=== PATIENT | male | born 1995 | race Caucasian/White ===

== ENCOUNTER → 2020-01-16 07:23 | Outpatient (BNVA) | payer OTHER, SELFPAY | PROVIDERS: Family Provider Nurse Practitioner Family; PCP Nurse Practitioner Family; Visit Provider Nurse Practitioner Family | DX: Z20.828 Contact with and (suspected) exposure to other viral communicable diseases (principal); J06.9 Acute upper respiratory infection, unspecified | CPT/HCPCS: 87635 ==

== ENCOUNTER → 2021-05-14 11:04 | Outpatient (BNVA) | payer OTHER, SELFPAY | PROVIDERS: Family Provider Nurse Practitioner Family; PCP Nurse Practitioner Family; Visit Provider Nurse Practitioner Family | DX: J02.9 Acute pharyngitis, unspecified (principal); Z20.828 Contact with and (suspected) exposure to other viral communicable diseases | CPT/HCPCS: 87635 ==

== ENCOUNTER → 2021-05-14 11:04 | Outpatient (BNVA) | payer OTHER, SELFPAY | PROVIDERS: Family Provider Nurse Practitioner Family; PCP Nurse Practitioner Family; Visit Provider Nurse Practitioner Family | DX: J02.9 Acute pharyngitis, unspecified (principal) | CPT/HCPCS: 87880 ==

== ENCOUNTER 2024-02-28 21:11 | Emergency (ER) | payer OTHER, SELFPAY ==
[2024-02-28 21:18] VITALS: BP 152/96; PULSE 81; RESP 16; TEMP 36.7; O2SAT 97; BMI 27.9
[2024-02-28 21:44] VITALS: BP 141/92; PULSE 87; RESP 18; O2SAT 97
--- NOTE | 2024-02-28 21:48 | CTR_ITS ---
PROCEDURE INFORMATION: Exam: CT Lumbar Spine Without Contrast Exam date and time: 02/28/2024 10:00 PM Age: 28 years old Clinical indication: Low back pain TECHNIQUE: Imaging protocol: Computed tomography of the lumbar spine without contrast. Radiation optimization: All CT scans at this facility use at least one of these dose optimization techniques: automated exposure control; mA and/or kV adjustment per patient size (includes targeted exams where dose is matched to clinical indication); or iterative reconstruction. COMPARISON: No relevant prior studies available. RADIATION DOSE METRICS: Total DLP (mGy-cm): 550.5 FINDINGS: Bones/joints: Bone island in the left iliac wing. No acute fracture. No compression deformity. No spondylolisthesis. Mild posterior disc bulges L2-L3, L3-L4, L4-L5 and L5-S1 but no significant thecal sac compression or neural narrowing . Soft tissues: Unremarkable. CT/CT lumbar spine wo con* [id number] IMPRESSION: Mild degenerative disease of the lower lumbar spine.
--- NOTE | 2024-02-28 21:50 | W.ED.BACK ---
HPI - Back Pain/Injury General: Chief Complaint: Back Pain/Injury Stated Complaint: back pain Time Seen by Provider: 02/28/24 21:32 History of Present Illness: 28-year-old male patient comes in today for complaints of low back pain. 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 Patient reports that night he started having significant pain and over the last 48 hours his pain is exacerbated. Patient had gone to emergency department at [facility] and was evaluated there and given Flexeril. Patient reported no relief of his pain and discomfort and came to this emergency department. Patient reported that they did no imaging or further evaluation. Related Data Previous Rx's Medication Instructions Recorded diclofenac sodium 75 mg 75 mg PO BID PRN pain #20 tabs 02/28/24 tablet,delayed release hydrocodone 5 mg-acetaminophen 325 1 tab PO Q8H PRN pain #9 tabs 02/28/24 mg tablet Allergies Allergy/AdvReac Type Severity Reaction Status Date / Time No Known Allergies Allergy Verified 02/28/24 21:26 Review of Systems General: Reports: 10 or more systems reviewed and unremarkable except in HPI and below Musc: Reports: back pain [facility] ED PFSH: Social History (Updated 05/14/21 @ 11:01 by Jimena Shepard NP) Smoking and tobacco/nicotine status: current every day tobacco/nicotine user smokeless tobacco Smokeless tobacco user: chewing tobacco Physical Exam Const: COMMON NORMALS: alert HENMT: COMMON NORMALS: normocephalic HEAD & SCALP: normocephalic Neck/C-Spine: COMMON NORMALS: full ROM Resp: COMMON NORMALS: normal respiratory effort and clear to auscultation bilaterally AUSCULTATION: clear to auscultation bilaterally Cardio: COMMON NORMALS: regular rate RATE: regular rate GI: COMMON NORMALS: Soft to palpation and non-tender PALPATION: Yes Soft to palpation Back/Pelvis: COMMON NORMALS: thoracic and lumbar spine normal to inspection Extremity: COMMON NORMALS: full ROM Neuro: SENSORIUM/ORIENTATION: Yes alert Skin: COMMON NORMALS: turgor normal GENERAL SKIN EXAM: turgor normal Course Vital Signs: Vital signs: Vital Signs Temperature 98.1 F 02/28/24 21:18 Pulse Rate 87 02/28/24 21:44 Respiratory Rate 18 02/28/24 21:56 Blood Pressure 141/92 02/28/24 21:44 Pulse Oximetry 97 02/28/24 21:56 Oxygen Delivery Me thod Room Air 02/28/24 21:44 MDM - Back Pain/Injury Medical Decision Making Patient comes in today for evaluation of low back pain. 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 Patient reports he has had occasional back pain before but not to this severity. For the last 48 hours patient been unable to rest. Patient appears in moderate to severe pain. No CVA tenderness. Lower lumbar vertebral tenderness. Differential diagnosis includes but not limited to vertebral disc disease, facet arthropathy, compression fracture, lumbar strain. CT of the lumbar spine noted mild degenerative disc disease of the lower lumbar spine. Patient's pain was improved after an injection of Toradol and 1 mg of hydromorphone. Patient be continued on some diclofenac and hydrocodone. Patient was recommended to follow-up with primary care. 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 Labs Radiology Impressions Lumbar Spine CT 02/28/24 21:48 IMPRESSION: Mild degenerative disease of the lower lumbar spine. All radiology interpretation(s) finalized by discharge Discharge Plan Discharge Patient Disposition: Home Clinical Impression: Intervertebral disc degeneration Qualifiers: Spinal region: lumbar Disc-related pain type: discogenic back pain only Qualified Code(s): M51.360 - Other intervertebral disc degeneration, lumbar region with discogenic back pain only Condition: Stable Prescriptions: New diclofenac sodium 75 mg tablet,delayed release (DR/EC) 75 mg PO BID PRN (Reason: pain) Qty: 20 0RF hydrocodone-acetaminophen 5-325 mg tablet 1 tab PO Q8H PRN (Reason: pain) Qty: 9 0RF Discharge Orders: Discharge ED (Routine); Ordered 02/28/24 Ordered By: Naveed Gil Referrals: Flaquito Ulrich FNP [Family Provider] - Discharge Diet: Usual diet Discharge Activity: Increase activity as tolerated Patient Instructions: Back Pain (ED) Activity Restrictions/Additional Instructions: Home and rest. Drink plenty of water and fluids. Take medication as directed. Follow-up with primary care as needed. Case management will contact you regarding follow-up with orthopedic foreclosure specialist. Coding Level of Care Code ED Cost Accounting Clerk for Augusto Prater
[2024-02-28 21:56] VITALS: RESP 18; O2SAT 97
[2024-02-28] MEDS: HYDROmorphone 1 mg/mL INJ 1 mL IM (21:56)
[2024-02-28] MEDS: ondansetron 4 MG Tablet PO (21:57)
[2024-02-28] MEDS: ketorolac 30 mg/mL INJ IM (21:57)
[2024-02-28 22:43] VITALS: BP 125/86; PULSE 86; O2SAT 95
--- NOTE | 2024-03-01 08:20 | DCPLANNER ---
messaged ortho for er f/u
== END 2024-02-28 22:44 | disposition home or self-care (01) ==
PROVIDERS: Emergency Provider Nurse Practitioner Family; Family Provider Nurse Practitioner Family
DX: M51.360 Other intervertebral disc degeneration, lumbar region with discogenic back pain only (principal); F17.220 Nicotine dependence, chewing tobacco, uncomplicated
CPT/HCPCS: 72131; 96372; 99284; J1171; J1885; Q0162

== ENCOUNTER → 2024-03-14 09:56 | Outpatient (BNVA) | payer OTHER, SELFPAY | PROVIDERS: Family Provider Nurse Practitioner Family; Visit Provider Orthopaedic Surgery | DX: M54.9 Dorsalgia, unspecified (principal); M54.50 Low back pain, unspecified; R03.0 Elevated blood-pressure reading, without diagnosis of hypertension | CPT/HCPCS: 72110 ==